=== PATIENT | male | born 1950 | race Caucasian/White ===

== ENCOUNTER 2023-10-24 19:17 | Inpatient (IN) | payer SELFPAY ==
--- NOTE | 2023-12-19 08:34 | US ---
Mikie Hilliard ID: [id number] : 1950 EXAMINATION TYPE: US paracentesis abd w/image DATE OF EXAM: 10/27/2023 CLINICAL HISTORY: 73-year-old male with nonfunctioning implanted drainage catheter referred for para centesis for ascites. The procedure was discussed with the patient. The risks, complications, benefits, and alternatives we re discussed and any questions were answered. Informed consent was obtained. The patient was placed s upine on the ultrasound table and prepped and draped in the usual sterile fashion. Ultrasound was utilized to determine the precise skin entry site along the left lower quadrant. The a shabnam was marked. All elements of maximal barrier technique were utilized. Utilizing trocar technique and a 6 [place] safety centesis catheter system, access into the left lower quadrant ascites collection was obtained. Aspiration yielded 10.3 L of clear watermelon fluid. Fluid was discarded. The catheter was removed, hemostasis obtained, and a dressing placed. The patient was stable throughout the procedure and was released back to inpatient room. IMPRESSION: Successful therapeutic paracentesis under ultrasound guidance, 10.3 L of fluid removed.
== END 2023-10-28 13:00 | DRG 435 ==
LOC: EC 19:17 → 4SSUR 20:55
PROVIDERS: ADMIT Family Medicine; ATTEND Family Medicine
PROC: 0W9G3ZX Drainage of Peritoneal Cavity, Percutaneous Approach, Diagnostic (ICD-10-PCS; principal; 2023-10-26)
DX: C78.7 Secondary malignant neoplasm of liver and intrahepatic bile duct (principal); E43 Unspecified severe protein-calorie malnutrition; R18.0 Malignant ascites; C23 Malignant neoplasm of gallbladder; I50.22 Chronic systolic (congestive) heart failure; I11.0 Hypertensive heart disease with heart failure; Z93.1 Gastrostomy status; Z51.5 Encounter for palliative care; D63.0 Anemia in neoplastic disease; K21.9 Gastro-esophageal reflux disease without esophagitis; R53.83 Other fatigue; Z68.28 Body mass index [BMI] 28.0-28.9, adult; Z87.891 Personal history of nicotine dependence; Z79.899 Other long term (current) drug therapy
CPT/HCPCS: 49083; 99285